=== PATIENT | male | born 1960 | race Hispanic/Latino ===

== ENCOUNTER 2018-04-17 11:19 | Emergency (ER) | payer SELFPAY ==
[2018-04-17 11:31] VITALS: BP 131/87; PULSE 89; TEMP 97.4; O2SAT 96
[2018-04-17 11:32] VITALS: BMI 33.2
--- NOTE | 2018-04-17 12:02 | ED PDOC ---
HPI: Dental Pain/Injury Time Seen by Provider: 04/17/18 11:48 Chief Complaint (Nursing): Dental Pain Chief Complaint (Provider): dental pain History Per: Patient History/Exam Limitations: no limitations Onset/Duration Of Symptoms: Days (today morning) Additional Complaint(s): Pt. woke up and had pain to the left upper mouth and left cheek swelling. No numbness, tingles, weakness. Able to swallow. No sore throat. No dizziness. No fever. No neck pain. Went to a dentist and ws not here, so came to the ER. Does not take meds for his medical issues as he has no insurance. No headaches. Past Medical History Reviewed: Nursing Documentation, Vital Signs Vital Signs: Last Vital Signs Temp 97.4 F L 04/17/18 11:30 Pulse 89 04/17/18 11:30 Resp BP 131/87 04/17/18 11:30 Pulse Ox 96 04/17/18 11:30 - Medical History PMH: Diabetes, HTN - Surgical History Surgical History: No Surg Hx - Family History Family History: States: Unknown Family Hx - Immunization History Hx Tetanus Toxoid Vaccination: (unsure) - Home Medications Home Medications: Ambulatory Orders Medication Instructions Recorded metFORMIN [glucOPHAGE] 500 mg PO BID #30 tab 07/08/14 Cephalexin [Keflex] 500 mg PO TID #21 cap 03/02/15 Ibuprofen [Motrin] 600 mg PO Q6 PRN #20 tab 03/02/15 Naproxen [Naprosyn] 500 mg PO Q12H #20 tab 04/08/15 Amoxicillin/Clavulanate [Augmentin 1 tab PO BID #14 tab 11/20/16 875 MG-125 MG] metFORMIN [glucOPHAGE] 500 mg PO BID #20 tab 11/20/16 Clindamycin [Cleocin] 300 mg PO QID 7 Days cap 04/17/18 Ibuprofen [Motrin] 600 mg PO TID 7 Days tab 04/17/18 - Allergies Allergies/Adverse Reactions: Allergies Allergy/AdvReac Type Severity Reaction Status Date / Time No Known Allergies Allergy Verified 04/17/18 11:41 Review of Systems Constitutional: Negative for: Weakness ENT: Positive for: Mouth Pain. Negative for: Nose Discharge, Nose Congestion, Throat Pain Cardiovascular: Negative for: Chest Pain Respiratory: Negative for: Shortness of Breath Musculoskeletal: Negative for: Neck Pain Skin: Negative for: Rash Neurological: Negative for: Weakness Physical Exam - Reviewed Nursing Documentation Reviewed: Yes Vital Signs Reviewed: Yes - Physical Exam Appears: Positive for: Well, Non-toxic, No Acute Distress Head Exam: Positive for: ATRAUMATIC, NORMAL INSPECTION, NORMOCEPHALIC Skin: Positive for: Normal Color, Warm, DRY Eye Exam: Positive for: EOMI, Normal appearance, PERRL ENT: Positive for: Other (poor dental hygiene; multiple missing teeth; left upper incisor missing and mild tender in gum area; no erythema or swelling; no dc; left cheek near incisor with mild swelling; no induration or fluctuance) Neck: Positive for: Normal, Painless ROM Cardiovascular/Chest: Positive for: Regular Rate, Rhythm Respiratory: Positive for: CNT, Normal Breath Sounds Neurologic/Psych: Positive for: Alert, Oriented - ECG O2 Sat by Pulse Oximetry: 96 - Progress ED Course And Treament: 1206: Stable. AAOx3. Pain controlled. Pt. tried to get to dentist but was closed today. Fu with him or clinic. Disposition - Clinical Impression Clinical Impression: Dental caries - Patient ED Disposition Is Patient to be Admitted: No Counseled Patient/Family Regarding: Diagnosis, Need For Followup, Rx Given - Disposition Referrals: [facility] [Outside] - 04/18/18 Disposition: Routine/Home Disposition Time: 11:59 Condition: STABLE Additional Instructions: Return if not better in 3 days. See the dentist without fail in 3 days. 1. [facility] [address] [place] - [address] We are proud to be one of the largest providers of high quality healthcare in the [facility]. We offer a full range of medical and dental services for children, adults, and seniors including in-house specialists at our centersThis clinic is based on Sliding scale fees which are variable. website See Clinic Full Details 2. [facility] [address] [place] - [address] [facility]. Fees: Medicaid, Self-PayWe provide dental services for children, adults and SeniorsThis clinic is based on Sliding scale fees which are variable prices for products, services, or taxes based on a customer's ability to pay. website See Clinic Full Details 3. [facility] [address] [facility] [address] Services:Medical and DentalHours:Mon & Wed: 9AM 7PMTue & Vesna-Sat: 9AM 5PM See Clinic Full Details 4. [facility], Division of Oral Medicine (DS) [facility] Dental [facility], Division of Oral Medicine (DS) [address] [place], [place] - [address] [phone] Dentistry for Disabled Patients Provides general dental care for people who cannot be treated in a normal dental office, including disabled, mentally retarded and frightened. When needed, treatment can be done under general anesthesia in [facility]. All treatment is by graduate dentists. email website See Clinic Full Details 5. [facility] [place] [address] [place], [place] - [address] [phone] Specialists include: Oral Surgery with General Anesthesia, Pedodontics (Children 's Dentistry). General dentistry includes: preventive care, cleaning and polishing of teeth, filing, beautiful crowns and bridgework, natural looking dentures, root canal treatments, gum treatment, etc. See Clinic Full Details 6. [facility] [address] [place], [place] - [address] [phone] Federally funded/qualified [facility] and [facility]. Adolescent health,adult medicine,family planning,geriatrics,obstetrics,pediatrics,manager social, mental health evaluation and therapy,alcoholism counseling and therapy,dental services,AIDS testing/counseling/treatment,nutrition education. Prescriptions: Clindamycin [Cleocin] 300 mg PO QID 7 Days cap Ibuprofen [Motrin] 600 mg PO TID 7 Days tab Instructions: Dental Pain
== END 2018-04-17 12:30 | disposition home or self-care (01) ==
LOC: H.ER 11:19
DX: K02.9 Dental caries, unspecified (principal)